=== PATIENT | male | born 1995 | race African-American/Black ===

== ENCOUNTER 2021-06-21 09:49 | Emergency (ER) | payer BC ==
[~2021-06-21] VITALS: Ht 193 cm; Wt 93.2 kg
[2021-06-21 09:59] VITALS: BP 116/86
== END 2021-06-21 11:12 | disposition home or self-care (01) ==
LOC: ER 09:49
DX: S90.852A Superficial foreign body, left foot, initial encounter (principal); W25.XXXA Contact with sharp glass, initial encounter; Y93.89 Activity, other specified; Y92.59 Other trade areas as the place of occurrence of the external cause; Y99.8 Other external cause status
CPT/HCPCS: 73630; 99283